=== PATIENT | male | born 1940 | race Caucasian/White ===

== ENCOUNTER 2020-02-16 11:00 | Inpatient (IN) | payer BC, MEDICARE ==
[~2020-02-16] VITALS: Ht 177.8 cm; Wt 87.2 kg
[2020-02-16 11:00] VITALS: BP 137/82
[2020-02-16] MEDS ORDERED: ASPI-630 PO (11:24)
[2020-02-16] MEDS ORDERED: ACETAMINOPHEN 325 MG TABLET. PO PRN ×2 (11:45→12:30)
[2020-02-16] MEDS ORDERED: ONDANSETRON PF 4 MG/2 ML VIAL. IV PRN (11:45)
--- NOTE | 2020-02-16 11:52 | PDOC1 ---
History and Physical Date of Admission Date of Admission DATE: 02/16/20 TIME: 11:47 Identification/Chief Complaint Chief Complaint Left facial paresthesias Source Source: Chart review, Patient History of Present Illness History of Present Illness Mr Martin is an 79 yo relatively healthy male who presents today to [place] [facility] with some left-sided tingling. He denies any weakness. He was in a couple of days ago admitted to [facility] briefly and discharged. He had a CT scan at that time showing old infarcts in frontal lobe and left cerebellum. This morning he states he woke up around 6:00 felt his usual self went to the bathroom and by 6:05 AM today he had some left-sided facial tingling he states initially both legs were tingling but when he got in bed he felt like his left arm and left leg were tingling. He denied any weakness. He denies any headache. He states the symptoms are little more severe today. He has had no difficulty speaking. He does not report any difficulty walking. Ordinarily, he takes baby aspirin every day however he has not taken any today but did take 162mg on 02/15/20. EKG: Normal sinus rhythm rate in the 70s without ischemic ST-T changes Past Medical History Cardiovascular: HTN Past Surgical History Past Surgical History: Appendectomy Family History Family History: High Cholestrol, Hypertension Social History Smoke: Quit (1979) ALCOHOL: social Drugs: None Current Medications Current Medications Current Medications Ondansetron HCl (Zofran) 4 mg PRN Q4HRS PRN IV NAUSEA/VOMITING; Start 02/16/20 at 11:45; Status UNV Acetaminophen (Tylenol) 650 mg PRN Q4HRS PRN PO TEMP OVER 100.4F OR MILD PAIN; Start 02/16/20 at 11:45; Status UNV Enoxaparin Sodium (Lovenox 40mg Syringe) 40 mg Q24H SQ ; Start 02/16/20 at 11:45; Status UNV Active Scripts Active Reported Aspirin 81 Mg Tab.chew 1 Tab PO DAILY Allergies Allergies: Coded Allergies: No Known Drug Allergies (Unverified , 02/16/20) ROS General: No: Chills, Night Sweats, Fatigue, Malaise, Appetite, Other PSYCHOLOGICAL ROS: No: Anxiety, Behavioral Disorder, Concentration difficultie, Decreased libido, Depression, Disorientation, Hallucinations, Hostility, Irritablity, Memory difficulties, Mood Swings, Obsessive thoughts, Physical abuse, Sexual abuse, Sleep disturbances, Suicidal ideation, Other Eyes: No Blurry vision, No Decreased vision, No Double vision, No Dry eyes, No Excessive tearing, No Eye Pain, No Itchy Eyes, No Loss of vision, No Photophobia, No Scotomata, No Uses contacts, No Uses glasses, No Other HEENT: No: Heacaches, Visual Changes, Hearing change, Nasal congestion, Nasal discharge, Oral lesions, Sinus pain, Sore Throat, Epistaxis, Sneezing, Snoring, Tinnitus, Vertigo, Vocal changes, Other ALLERGY AND IMMUNOLOGY: No: Hives, Insect Bite Sensitivity, Itchy/Watery Eyes, Nasal Congestion, Post Nasal Drip, Seasonal Allergies, Other Hematological and Lymphatic: No: Bleeding Problems, Blood Clots, Blood Transfusions, Brusing, Night Sweats, Pallor, Swollen Lymph Nodes, Other ENDOCRINE: No: Breast Changes, Galactorrhea, Hair Pattern Changes, Hot Flashes, Malaise/lethargy, Mood Swings, Palpitations, Polydipsia/polyuria, Skin Changes, Temperature Intolerance, Unexpected Weight Changes, Other Breast: No New/Changing Breast Lumps, No Nipple changes, No Nipple discharge, No Other Respiratory: No: Cough, Hemoptysis, Orthopnea, Pleuritic Pain, Shortness of breath, SOB with excertion, Sputum Changes, Stridor, Tachypnea, Wheezing, Other Gastrointestinal: No Nausea, No Vomiting, No Abdominal Pain, No Diarrhea, No Constipation, No Melena, No Hematochezia, No Other Genitourinary: No Dysuria, No Frequency, No Incontinence, No Hematuria, No Retention, No Discharge, No Urgency, No Pain, No Flank Pain, No Other, No , No , No , No , No , No , No Musculoskeletal: No Gait Disturbance, No Joint Pain, No Joint Stiffness, No Joint Swelling, No Muscle Pain, No Muscular Weakness, No Pain In:, No Swelling In:, No Other Neurological: Yes Numbness/Tingling; No Behavorial Changes, No Bowel/Bladder ControlChng, No Confusion, No Dizziness, No Gait Disturbance, No Headaches, No Impaired Coord/balance, No Memory Loss, No Seizures, No Speech Problems, No Tremors, No Visual Changes, No Weakness, No Other Skin: No Dry Skin, No Eczema, No Hair Changes, No Lumps, No Mole Changes, No Mottling, No Nail Changes, No Pruritus, No Rash, No Skin Lesion Changes, No Other, No Acne Physical Exam General: Alert, Oriented X3, Cooperative, No acute distress HEENT: Atraumatic, PERRLA, EOMI, Mucous membr. moist/pink Lungs: Clear to auscultation, Normal air movement Heart: S1S2, RRR, no thrills, no rubs, no gallops, no murmurs Abdomen: Normal bowel sounds, Soft, No tenderness, No hepatosplenomegaly, No masses Rectal Exam: not examined Extremities: No clubbing, No cyanosis, No edema, Normal pulses, No tenderness/swelling Skin: No rashes, No breakdown, No significant lesion Neuro: Normal gait, Normal speech, Strength at 5/5 X4 ext, Normal tone, Cranial nerves 3-12 NL, Reflexes 2+, Other (Decreased left facial sensation) Psych/Mental Status: Mental status NL, Mood NL Images Images 02/14/2020 CT head without contrast Linear chronic posterior left cerebellar infarct. Encephalomalacia likely from chronic infarcts at the left anterior frontal lobe with ex vacuo enlargement of the frontal horn. Ventriculomegaly is present disproportionate to the cerebral sulci which could be related to generalized brain atrophy versus sequela of normal pressure hydrocephalus. No obstructive hydrocephalus changes evident. No intracranial hemorrhage or mass. Linear scarlike density along the left occipital scalp with mild nodularity is indeterminate measuring 1.5 x 1.0 cm. Orbits, orbits, mastoids and bones are unremarkable. Fluid sphenoid sinuses. IMPRESSION: 1. No acute abnormality. 2. Chronic infarcts as described above. 3. Mild ventriculomegaly which could be related to generalized brain atrophy which is present versus changes of normal pressure hydrocephalus. 4. There is mild fluid within the sphenoid sinuses may indicate sinusitis. 5. Linear nodular 1.5 to 1.0 cm density of the left lower occipital scalp. 02/14/2020 CT angiography of the carotid arteries, CT arteriogram of the brain. Upper aspect of the lungs are free of confluent infiltrates. There are calcified granulomas. Thyroid is homogeneous. There is facet arthritis and degenerative change in the cervical spine. Degenerative disc disease at C5-6 and C6-7. There is mild atherosclerotic change at the aortic arch. Thoracic aorta is mildly dilated, the proximal descending thoracic aorta measures 3.1 cm. There is no stenosis at the origins the great vessels. There is mild plaque at the origin of the left vertebral. Right vertebral is normal. Both vertebral arteries supply flow to the basilar artery. Common carotid arteries are patent. There is mild plaque at the carotid bifurcations on each side without significant stenosis. IMPRESSION: 1. Mild calcified plaque the carotid bifurcations without stenosis. 2. Mild plaque the origin the left vertebral. 3. General changes in the cervical spine. CT arteriogram of the brain CT arteriogram of the brain was done following the CT arteriogram the carotid arteries. Sagittal and coronal MIP images were reconstructed. Three-dimensional images were reconstructed. Both vertebral arteries supply flow to the basilar artery. Basilar artery appeared normal. Posterior cerebral arteries have their main flow from the basilar artery and appear patent. There is mild plaque at the carotid siphon on each side without stenosis. There are normal anterior cerebral arteries on each side with a normal anterior communicating artery. Middle cerebral arteries are patent no major vessel occlusion is noted intracranial veins are patent. No pathologic enhancement. Is focal encephalomalacia in the sylvian fissure frontal lobe on the left possibly an old CVA. There is mucosal thickening in the maxillary antra and seen ON sinuses. IMPRESSION: 1. No intracranial aneurysm or major vessel occlusion noted. 2. Old left frontal CVA. 3. No pathologic enhancement. 02/16/2020: CT HEAD WO CONTRAST Findings: No acute intracranial hemorrhage is identified. There is again old left frontal infarct with cortical involvement, also small old left cerebellar infarct as seen previously. There is similar third and lateral ventriculomegaly although there is degree of supratentorial atrophy. There is no new midline shift. There is atherosclerotic calcification of the carotid siphons bilaterally. Visualized paranasal sinuses and mastoid air cells are overall aerated. There is again nonspecific soft tissue density underlying the skin surface on the left occipital scalp. Impression: 1. There is no evidence of acute intracranial hemorrhage. 2. 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 3. There is similar degree of third and lateral ventriculomegaly which may be due to supratentorial atrophy. VTE Prophylaxis Ordered VTE Prophylaxis Devices: No VTE Pharmacological Prophylaxi: Yes Assessment/Plan Assessment/Plan A/P: Left facial numbness - prior CVA, this was TIA 2 days ago, but recurred. Will have neurology consulted. ASA, statin. MRI. 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 Third and lateral ventriculomegaly - likely from some brain atrophy HTN - cont home medications FEN - General diet PPX - lovenox CODE - FULL Dispo - inpatient for concern for acute CVA NINFA VASQUEZ MD Feb 16, 2020 11:52
[2020-02-16] MEDS ORDERED: IV NORMAL SALINE 1000ML BAG 1,000 ML IV SCH (12:24)
--- NOTE | 2020-02-16 12:28 | PDOC2 ---
NEUROLOGY CONSULT Date of Admission Date of Admission DATE: 02/16/20 TIME: 12:27 History of Present Illness History of Present Illness The patient is an 79-year-old right-handed male who presented to [facility] 2 days ago with left face and arm numbness. He had a similar episode about a year ago, he thinks it was on the left side then. At [facility] he had a CT of the head and CT angiogram. He did see Dr. Swain, but his note is not in the chart. The patient was increased from 81 to 162 mg of aspirin a day. Echocardiogram was not checked. Lipids were not checked. This morning he went back to [facility] with recurrence of left-sided numbness, face and arm. He still has a little bit of tingling in the face. He denies headache, history of migraines, diplopia, dysphagia, dysarthria, weakness, or cognitive change. There is no history of seizure or head injury. He does not have hypertension or diabetes. I reviewed vital signs from [facility], the maximum blood pressure was 162/90 Past Medical History CENTRAL NERVOUS SYSTEM: TIA Musculoskeletal: Osteoarthritis Past Surgical History Past Surgical History: Appendectomy, Other (Lung biopsy, benign) Social History Social History , ex-smoker quit 40 years ago, occasional beer, retired Current Medications Current Medications Current Medications Ondansetron HCl (Zofran) 4 mg PRN Q4HRS PRN IV NAUSEA/VOMITING; Start 02/16/20 at 11:45 Acetaminophen (Tylenol) 650 mg PRN Q4HRS PRN PO TEMP OVER 100.4F OR MILD PAIN; Start 02/16/20 at 11:45 Enoxaparin Sodium (Lovenox 40mg Syringe) 40 mg Q24H SQ ; Start 02/16/20 at 16:00 Active Scripts Active Reported Aspirin 81 Mg Tab.chew 1 Tab PO DAILY Allergies Allergies: Coded Allergies: No Known Drug Allergies (Unverified , 02/16/20) ROS Review of System Negative for fever, chills, weight loss, shortness of breath, chest pain, indigestion, hematochezia, melena, and dysuria. Full 14-point review of systems is negative. Physical Exam Physical Examination General: Well-developed, well-nourished white male in no acute distress HEENT: Normocephalic andatraumatic. Temporal arteriespulsatile and nontender. Neck: Supple without bruit, no meningismus Musculoskeletal: Stability:see neurologic. Gait exam:see neurologic. Tone:see neurologic.Strength:see neurologic. Neurological: Mental Status:intact, orientation, memory, attention span/concentration, language, fund of knowledge normal. Cranial Nerves:Pupils equal and reactive to light, extraocular movements areintact, visual maguire are full to confronta tion. Facial sensation is normal. There is no facial asymmetry. Vestibulo-ocular reflex is intact. Palate elevates and tongue protrudes in midline. All other cranial related problems are negative except as mentioned before.Reflexes:2+ and symmetric with flexor plantar responses. Motor:5/5 strength with normal tone and bulk. Coordination:Finger-nose finger and [id number] testing are normal. Rapid alternating movements and fine finger movements are intact. Gait:Normal, including tandem. Sensory:Normal pinprick, vibration, light touch, proprioception. Vitals VITALS Vital Signs Date Time Temp Pulse Resp B/P (MAP) Pulse Ox O2 Delivery O2 Flow Rate FiO2 02/16/20 11:00 Room Air Images Images 02/14/2020 CT head without contrast Linear chronic posterior left cerebellar infarct. Encephalomalacia likely from chronic infarcts at the left anterior frontal lobe with ex vacuo enlargement of the frontal horn. Ventriculomegaly is present disproportionate to the cerebral sulci which could be related to generalized brain atrophy versus sequela of normal pressure hydrocephalus. No obstructive hydrocephalus changes evident. No intracranial hemorrhage or mass. Linear scarlike density along the left occipital scalp with mild nodularity is indeterminate measuring 1.5 x 1.0 cm. Orbits, orbits, mastoids and bones are unremarkable. Fluid sphenoid sinuses. IMPRESSION: 1. No acute abnormality. 2. Chronic infarcts as described above. 3. Mild ventriculomegaly which could be related to generalized brain atrophy which is present versus changes of normal pressure hydrocephalus. 4. There is mild fluid within the sphenoid sinuses may indicate sinusitis. 5. Linear nodular 1.5 to 1.0 cm density of the left lower occipital scalp. 02/14/2020 CT angiography of the carotid arteries, CT arteriogram of the brain. Upper aspect of the lungs are free of confluent infiltrates. There are calcified granulomas. Thyroid is homogeneous. There is facet arthritis and degenerative change in the cervical spine. Degenerative disc disease at C5-6 and C6-7. There is mild atherosclerotic change at the aortic arch. Thoracic aorta is mildly dilated, the proximal descending thoracic aorta measures 3.1 cm. There is no stenosis at the origins the great vessels. There is mild plaque at the origin of the left vertebral. Right vertebral is normal. Both vertebral arteries supply flow to the basilar artery. Common carotid arteries are patent. There is mild plaque at the carotid bifurcations on each side without significant stenosis. IMPRESSION: 1. Mild calcified plaque the carotid bifurcations without stenosis. 2. Mild plaque the origin the left vertebral. 3. General changes in the cervical spine. CT arteriogram of the brain CT arteriogram of the brain was done following the CT arteriogram the carotid arteries. Sagittal and coronal MIP images were reconstructed. Three-dimensional images were reconstructed. Both vertebral arteries supply flow to the basilar artery. Basilar artery appeared normal. Posterior cerebral arteries have their main flow from the basilar artery and appear patent. There is mild plaque at the carotid siphon on each side without stenosis. There are normal anterior cerebral arteries on each side with a normal anterior communicating artery. Middle cerebral arteries are patent no major vessel occlusion is noted intracranial veins are patent. No pathologic enhancement. Is focal encephalomalacia in the sylvian fissure frontal lobe on the left possibly an old CVA. There is mucosal thickening in the maxillary antra and seen ON sinuses. IMPRESSION: 1. No intracranial aneurysm or major vessel occlusion noted. 2. Old left frontal CVA. 3. No pathologic enhancement. 02/16/2020: CT HEAD WO CONTRAST Findings: No acute intracranial hemorrhage is identified. There is again old left frontal infarct with cortical involvement, also small old left cerebellar infarct as seen previously. There is similar third and lateral ventriculomegaly although there is degree of supratentorial atrophy. There is no new midline shift. There is atherosclerotic calcification of the carotid siphons bilaterally. Visualized paranasal sinuses and mastoid air cells are overall aerated. There is again nonspecific soft tissue density underlying the skin surface on the left occipital scalp. Impression: 1. There is no evidence of acute intracranial hemorrhage. 2. 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 3. There is similar degree of third and lateral ventriculomegaly which may be due to supratentorial atrophy. Assessment/Plan Assessment/Plan Impression: Symptoms of a right hemispheric small-vessel infarct, fluctuating symptoms, he does not have a history of migraines to explain this, there is no major metabolic derangements such as hypo/hyperglycemia or severe hypertension (maximum blood pressure was 162/90 at [facility]), which could explain recurrent symptoms from an old stroke. Chronic left frontal infarct with cortical involvement, also small old left cerebellar infarct. Recommendations: MRI of the brain Echocardiogram Carotid Doppler studies were done, will check on results, but note that he had CT angiogram already Rehabilitation modalities, screening Increase to full adult dose aspirin Atorvastatin, I discussed side effects, pending lipid panel tomorrow morning Monitor blood pressure, okay to start medication if more than 140/90, I do not think we need to use the usual parameters of 210/120 for treatment during acute stroke Aim for discharge tomorrow if testing negative. Follow-up with neurology as needed. Thank you for letting me help with the patient's care. ORLIN DYE MD Feb 16, 2020 12:28
[2020-02-16] MEDS ORDERED: ASPIRIN RECTAL 300 MG SUPP. PR PRN (12:30)
[2020-02-16] MEDS ORDERED: ACETAMINOPHEN 650 MG SUPP.RECT. PR PRN (12:30)
--- NOTE | 2020-02-16 12:59 | RAD ---
Examination: DOPPLER CAROTID BILAT History: Paresthesias involving left side of the face. Previous TIA. Comparison study: None available. Findings: The common, internal and external carotid arteries were examined by grayscale, color and spectral Doppler ultrasound. [id number] quantity of partially calcified plaque is present involving the left internal carotid artery and to a lesser extent at the left common carotid artery. Small quantity of partially calcific plaque is noted involving the right internal carotid artery. Mild intimal thickening is noted involving the visualized arterial vasculature. Flow in both vertebral arteries was antegrade and normal. The following are the velocities and ratios in the carotid arteries on both sides: RIGHT ICA PV: 70.3 cm/sec RIGHT CCA PV: 100.6 cm/sec RIGHT ICA ED: 13 cm/sec RIGHT IC/CCPV: 0.7 RIGHT VERTEBRAL: antegrade flow LEFT ICA PV: 72 cm/sec LEFT CCA PV: 105 cm/sec LEFT ICA ED: 16 cm/sec LEFT IC/CCPV: 0.6. LEFT VERTEBRAL: antegrade flow <50% ICA Stenosis: PSV < 125cm/s (EDV < 40cm/s; SVR < 2.0) 50-69% ICA Stenosis: PSV < 125-229cm/s (EDV 40-99cm/s; SVR 2.0-3.9) >70% ICA Stenosis: PSV > 230cm/s (EDV >100cm/s; SVR >4.0) Impression: No hemodynamic stenosis. [id number] quantity of calcific plaque is seen. PQRS Compliance Statement - Stenosis calculations for CT, MR and conventional angiography are based upon measurement of the distal ICA diameter in accordance with the NASCET methodology. Stenosis calculations for carotid ultrasound studies are derived from validated velocity criteria which are known to correlate with the NASCET methodology. Electronically signed by: Jeffery Downing MD (02/16/2020 12:55 PM) [id number]
--- NOTE | 2020-02-16 14:41 | RAD ---
BRAIN W/O CONTRAST Date: 02/16/2020 11:42 AM Indication: Recurrent TIA Comparison: CT 02/16/2020. Technique: Multiplanar multisequence MRI of the brain was performed without intravenous contrast using the standard protocol. Findings: No acute infarct. No acute or chronic hemorrhage. The ventricles are normal in size and configuration without hydrocephalus. Mild to moderate scattered FLAIR hyperintensities in the subcortical and periventricular deep white matter, a nonspecific finding, most commonly seen with chronic small vessel ischemic disease. Mild to moderate generalized cerebral volume loss. Small areas of left frontal and left cerebellar encephalomalacia. The scalp and calvarium are normal. The pituitary and sella are normal. No Chiari malformation. Mild incompletely characterized degenerative spondylosis of the visualized upper cervical spine. The visualized orbits and globes are normal. The visualized paranasal sinuses are clear. The mastoid air cells are clear. Normal flow voids within the vertebral, basilar, and internal carotid arteries indicating patency. IMPRESSION: 1. No acute infarct, hemorrhage, mass, or hydrocephalus. 2. Small areas of left frontal and left cerebellar encephalomalacia. 3. Mild to moderate chronic small vessel ischemic disease and generalized cerebral volume loss. Electronically signed by: Yosef Meraz MD (02/16/2020 2:39 PM) [id number]
[2020-02-16 15:00] VITALS: BP 155/84
--- NOTE | 2020-02-16 15:31 | CARD ---
MR#: [id number] Date of Study: 02/16/2020 Ordering Physician: ORLIN DYE, Referring Physician: ORLIN DYE, Tech: Madie Sun APPROVED REPORT EXAM: Two-dimensional and M-mode echocardiogram with Doppler and color Doppler. Other Information Quality : GoodHR: 72bpm INDICATION CVA/TIA 2D DIMENSIONS RVDd4.0 (2.9-3.5cm)Left Atrium(2D)3.2 (1.6-4.0cm) IVSd0.9 (0.7-1.1cm)Aortic Root(2D)3.5 (2.0-3.7cm) LVDd5.4 (3.9-5.9cm)LVOT Diameter2.1 (1.8-2.4cm) PWd0.9 (0.7-1.1cm)LVDs3.3 (2.5-4.0cm) FS (%) 37.6 %SV93.3 ml LVEF(%)67.1 (>50%) Aortic Valve AoV Peak Mars.125.2cm/sAoV VTI21.1cm AO Peak GR.6.3mmHgLVOT Peak Mars.107.1cm/s LVOT VTI 21.71cmAO Mean GR.3mmHg DEVONTE (VMAX)2.99fy6LCV (VTI)3.56cm2 Mitral Valve MV E Jtpmwndo28.4cm/sMV DECEL [id number] MV A Rompiwjc00.4cm/sMV E Mean Gr.1mmHg MV MYI06svB/A Ratio0.7 MVA (PHT)2.35cm2 TDI E/Lateral E'10.4E/Medial E'8.3 Pulmonary Valve PV Peak Apyokcmu49.9cm/sPV Peak Grad.3mmHg Tricuspid Valve TR P. Azraclzd770dg/sRAP EGQHXPNK4jqAm TR Peak Gr.15vhMzDDUW68qaLk Pulmonary Vein S1 Wadipzln25.8cm/sD2 Wgcxliof04.9cm/s PVa [id number] LEFT VENTRICLE The left ventricle is normal size. There is normal left ventricular wall thickness. The left ventricu lar systolic function is normal and the ejection fraction is within normal range. The Ejection Fracti on is 55-60%. There is normal LV segmental wall motion. Transmitral Doppler flow pattern is Grade I-a bnormal relaxation pattern. RIGHT VENTRICLE The right ventricle is mildly dilated. There is normal right ventricular wall thickness. The right ve ntricular systolic function is normal. ATRIA The left atrium size is normal. The right atrium size is normal. The interatrial septum is intact wit h no evidence for an atrial septal defect or patent foramen ovale as noted on 2-D or Doppler imaging. AORTIC VALVE The aortic valve is normal in structure and function. Doppler and Color Flow revealed trace aortic re gurgitation. There is no significant aortic valvular stenosis. MITRAL VALVE The mitral valve is normal in structure and function. There is no evidence of mitral valve prolapse. There is no mitral valve stenosis. Doppler and Color-flow revealed trace mitral regurgitation. TRICUSPID VALVE The tricuspid valve is normal in structure and function. Doppler and Color Flow revealed trace tricus pid regurgitation with an estimated PAP of 26 mmHg. There is no tricuspid valve stenosis. PULMONIC VALVE The pulmonic valve is not well visualized. Doppler and Color Flow revealed trace to mild pulmonic kayla vular regurgitation. There is no pulmonic valvular stenosis. GREAT VESSELS The aortic root is normal in size. The ascending aorta is normal in size. The IVC is normal in size a nd collapses >50% with inspiration. PERICARDIAL EFFUSION There is no evidence of significant pericardial effusion. Critical Notification Critical Value: No <Conclusion> The left ventricular systolic function is normal and the ejection fraction is within normal range. Th e Ejection Fraction is 55-60%. There is normal LV segmental wall motion. Signed by : Jack Magaña, Electronically Approved : 02/16/2020 15:31:16
[2020-02-16] MEDS: ENOXAPARIN 40 MG/0.4 ML SYRINGE. SQ SCH (17:29)
[2020-02-16 19:34] VITALS: BP 114/54
[2020-02-16] MEDS ORDERED: ATORVASTATIN CALCIUM 40 MG TABLET. PO SCH (21:00)
[2020-02-16] MEDS ORDERED: SIMVASTATIN 10 MG TABLET PO SCH (21:00)
[2020-02-16 23:03] VITALS: BP 118/58
[2020-02-17 03:19] VITALS: BP 115/55
[2020-02-17 05:29] LABS: CHOLESTEROL/HDL RATIO 3.2
[2020-02-17 07:00] VITALS: BP 146/83
[2020-02-17] MEDS ORDERED: ASPIRIN ENTERIC COATED 325 MG TABLET.DR. PO SCH (08:00)
[2020-02-17 11:47] VITALS: BP 135/74
--- NOTE | 2020-02-17 12:39 | PDOC ---
PROGRESS NOTES History of Present Illness History of Present Illness Impression: 1. There is no evidence of acute intracranial hemorrhage. 2. 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 3. There is similar degree of third and lateral ventriculomegaly which may be due to supratentorial atrophy. VTE Prophylaxis Ordered VTE Prophylaxis Devices: No VTE Pharmacological Prophylaxi: Yes DISCHARGE DX Assessment/Plan A/P: Left facial numbness - prior CVA, this was TIA 2 days ago, but recurred. Will have neurology consulted. ASA, statin. MRI. 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 HTN - cont home medications FEN - General diet PPX - lovenox CODE - FULL Dispo - inpatient for concern for acute CVA D/C PLANNING 34 MIN Discharge Recommendations * Home independent Vitals Vitals Vital Signs Date Time Temp Pulse Resp B/P (MAP) Pulse Ox O2 Delivery O2 Flow Rate FiO2 02/17/20 11:47 97.6 70 18 135/74 (94) 98 Room Air 97.6 Physical Exam General: Alert, Oriented X3, Cooperative, No acute distress Heart: Regular rate Abdomen: Normal bowel sounds, Soft, No tenderness, No hepatosplenomegaly, No masses Extremities: No clubbing, No cyanosis, No edema, Normal pulses, No tenderness/swelling Skin: No rashes, No breakdown, No significant lesion Labs LABS Examination: DOPPLER CAROTID BILAT History: Paresthesias involving left side of the face. Previous TIA. Comparison study: None available. Findings: The common, internal and external carotid arteries were examined by grayscale, color and spectral Doppler ultrasound. Qtqgz-cn-quvaxusz quantity of partially calcified plaque is present involving the left internal carotid artery and to a lesser extent at the left common carotid artery. Small quantity of partially calcific plaque is noted involving the right internal carotid artery. Mild intimal thickening is noted involving the visualized arterial vasculature. Flow in both vertebral arteries was antegrade and normal. The following are the velocities and ratios in the carotid arteries on both sides: RIGHT ICA PV: 70.3 cm/sec RIGHT CCA PV: 100.6 cm/sec RIGHT ICA ED: 13 cm/sec RIGHT IC/CCPV: 0.7 RIGHT VERTEBRAL: antegrade flow LEFT ICA PV: 72 cm/sec LEFT CCA PV: 105 cm/sec LEFT ICA ED: 16 cm/sec LEFT IC/CCPV: 0.6. LEFT VERTEBRAL: antegrade flow <50% ICA Stenosis: PSV < 125cm/s (EDV < 40cm/s; SVR < 2.0) 50-69% ICA Stenosis: PSV < 125-229cm/s (EDV 40-99cm/s; SVR 2.0-3.9) >70% ICA Stenosis: PSV > 230cm/s (EDV >100cm/s; SVR >4.0) Impression: No hemodynamic stenosis. Mobqz-xt-ossndzgb quantity of calcific plaque is seen. PQRS Compliance Statement - Stenosis calculations for CT, MR and conventional angiography are based upon measurement of the distal ICA diameter in accordance with the NASCET methodology. Stenosis calculations for carotid ultrasound studies are derived from validated velocity criteria which are known to correlate with the NASCET methodology. Electronically signed by: Jeffery Peace MD (02/16/2020 12:55 PM) [id number] DICTATED and SIGNED BY: JEFFERY PEACE MD BRAIN W/O CONTRAST Date: 02/16/2020 11:42 AM Indication: Recurrent TIA Comparison: CT 02/16/2020. Technique: Multiplanar multisequence MRI of the brain was performed without intravenous contrast using the standard protocol. Findings: No acute infarct. No acute or chronic hemorrhage. The ventricles are normal in size and configuration without hydrocephalus. Mild to moderate scattered FLAIR hyperintensities in the subcortical and periventricular deep white matter, a nonspecific finding, most commonly seen with chronic small vessel ischemic disease. Mild to moderate generalized cerebral volume loss. Small areas of left frontal and left cerebellar encephalomalacia. The scalp and calvarium are normal. The pituitary and sella are normal. No Chiari malformation. Mild incompletely characterized degenerative spondylosis of the visualized upper cervical spine. The visualized orbits and globes are normal. The visualized paranasal sinuses are clear. The mastoid air cells are clear. Normal flow voids within the vertebral, basilar, and internal carotid arteries indicating patency. IMPRESSION: 1. No acute infarct, hemorrhage, mass, or hydrocephalus. 2. Small areas of left frontal and left cerebellar encephalomalacia. 3. Mild to moderate chronic small vessel ischemic disease and generalized cerebral volume loss. Electronically signed by: Alexia Berumen MD (02/16/2020 2:39 PM) [id number] DICTATED and SIGNED BY: ALEXIA BERUMEN MD DATE: 02/16/20 1439 Laboratory Tests Test 02/17/20 04:30 Triglycerides Level 88 mg/dL (0-150) Cholesterol Level 214 mg/dL (0-200) LDL Cholesterol, Calculated 130 mg/dL (0-100) VLDL Cholesterol, Calculated 18 mg/dL (0-40) Non-HDL Cholesterol Calculated 148 mg/dL (0-129) HDL Cholesterol 66 mg/dL (40-60) Cholesterol/HDL Ratio 3.2 Assessment and Plan Assessmemt and Plan * Independent Ambulation Assistive Device * No Device Ambulation Distance * 125 feet + 125 feet Ambulation Comments * Good, step-through gait. No loss of balance with turning and backing. Pt reports feeling at functional baseline. Stairs Assistance Required * Independent Number of Stairs * 2-4 Stairs Assistive Device * Rail on Left Stairs Comments * Pt steady with stair climbing. Reciprocal gait pattern up and down steps and one handrail. Balance Exercises * Sitting * Weight Shifting * Standing * Reaching to Floor * Backing Balance Exercises Comments * No loss of balance observed with above exercises. Other Information * Pt is at functional baseline. PT will recommend home with family assist. No further pullman conductor intervention indicated. PT will sign-off. Clinical Presentation * Stable Evaluation Complexity Level * Low Complexity Pt/caregiver agrees with plan of care/goals * Yes Patient condition at conclusion of therapy * Pt in chair * Call light in reach * Phone in reach * PtIn no apparent distress * Pt denies further needs Communicated Patient Care With (Name, Title) * Tahir RN; Judy OT No Further Skilled P.T. Intervention Required * Eval only-No PT Needs Discharge Recommendations * Home independent Discharge Recommendation - DME Comment Review of Relevant I have reviewed the following items marleni (where applicable) has been applied. Labs Laboratory Tests Test 02/17/20 04:30 Triglycerides Level 88 mg/dL (0-150) Cholesterol Level 214 mg/dL (0-200) LDL Cholesterol, Calculated 130 mg/dL (0-100) VLDL Cholesterol, Calculated 18 mg/dL (0-40) Non-HDL Cholesterol Calculated 148 mg/dL (0-129) HDL Cholesterol 66 mg/dL (40-60) Cholesterol/HDL Ratio 3.2 Laboratory Tests Test 02/17/20 04:30 Triglycerides Level 88 mg/dL (0-150) Cholesterol Level 214 mg/dL (0-200) LDL Cholesterol, Calculated 130 mg/dL (0-100) VLDL Cholesterol, Calculated 18 mg/dL (0-40) Non-HDL Cholesterol Calculated 148 mg/dL (0-129) HDL Cholesterol 66 mg/dL (40-60) Cholesterol/HDL Ratio 3.2 Medications Current Medications Ondansetron HCl (Zofran) 4 mg PRN Q4HRS PRN IV NAUSEA/VOMITING; Start 02/16/20 at 11:45 Acetaminophen (Tylenol) 650 mg PRN Q4HRS PRN PO TEMP OVER 100.4F OR MILD PAIN; Start 02/16/20 at 11:45 Enoxaparin Sodium (Lovenox 40mg Syringe) 40 mg Q24H SQ Last administered on 02/16/20at 17:29; Start 02/16/20 at 16:00 Sodium Chloride 1,000 ml @ 100 mls/hr Q10H IV Last administered on 02/16/20at 13:20; Start 02/16/20 at 12:24; Stop 02/16/20 at 13:50; Status DC Simvastatin (Zocor) 10 mg QHS PO ; Start 02/16/20 at 21:00; Stop 02/16/20 at 14:25; Status DC Acetaminophen (Tylenol) 650 mg PRN Q6HRS PRN PO TEMP > 100.4F; Start 02/16/20 at 12:30; Stop 02/16/20 at 14:25; Status DC Acetaminophen (Tylenol Supp) 650 mg PRN Q4HRS PRN [place] TEMP > 100.4F; Start 02/16/20 at 12:30 Aspirin (Ecotrin) 325 mg DAILYWBKFT PO Last administered on 02/17/20at 09:19; Start 02/17/20 at 08:00 Aspirin (Aspirin Rectal Supp) 300 mg PRN DAILY PRN [place] IF UNABLE TO TAKE PO; Start 02/16/20 at 12:30 Atorvastatin Calcium (Lipitor) 40 mg QHS PO Last administered on 02/16/20at 20:30; Start 02/16/20 at 21:00 Active Scripts Active Reported Aspirin 81 Mg Tab.chew 1 Tab PO DAILY Vitals/I & O Vital Sign - Last 24 Hours 02/16/20 02/16/20 02/16/20 02/16/20 15:00 19:34 20:00 23:03 Temp 98.2 98.2 Pulse 74 75 76 Resp 18 18 18 B/P (MAP) 155/84 (107) 114/54 (74) 118/58 (78) Pulse Ox 97 96 94 O2 Delivery Room Air Room Air Room Air Room Air 02/17/20 02/17/20 02/17/20 02/17/20 03:19 07:00 08:00 11:47 Temp 98.2 97.8 97.6 98.2 97.8 97.6 Pulse 76 92 70 Resp 18 18 18 B/P (MAP) 115/55 (75) 146/83 (104) 135/74 (94) Pulse Ox 95 94 98 O2 Delivery Room Air Room Air Room Air Room Air Intake and Output 02/16/20 02/16/20 02/17/20 15:00 23:00 07:00 Intake Total 800 ml 10 ml Balance 800 ml 10 ml RANJIT OSEI MD Feb 17, 2020 12:39
--- NOTE | 2020-02-17 13:45 | PDOC ---
PROGRESS NOTES Assessment Patient is a 79-year-old man who complained of left facial numbness. He underwent investigation with carotid Doppler, echocardiogram and MRI which were all negative. He does have evidence for hyperlipidemia and has been started on a statin. He will continue to be maintained on aspirin daily. He may be dismissed from a neurologic perspective. Plan He may be dismissed from a neurologic perspective. He will continue with the statin and aspirin as mentioned above. He should contact neurology or his primary care physician should he have further neurologic symptoms or go to the nearest emergency room. Subjective I feel fine. I haven't had any more symptoms. Objective Vital Signs Date Time Temp Pulse Resp B/P (MAP) Pulse Ox O2 Delivery O2 Flow Rate FiO2 02/17/20 11:47 97.6 70 18 135/74 (94) 98 Room Air 97.6 Intake and Output 02/17/20 07:00 Intake Total 810 ml Balance 810 ml Intake Oral 810 ml # Voids 1 PHYSICAL EXAM He was alert, awake and cooperative. Speech was fluent and clear. The eyes were conjugate and face symmetric. Movements were symmetric and well coordinated. Sitting balance was normal. Review of Relevant I have reviewed the following items marleni (where applicable) has been applied. Labs Laboratory Tests Test 02/17/20 04:30 Triglycerides Level 88 mg/dL (0-150) Cholesterol Level 214 mg/dL (0-200) LDL Cholesterol, Calculated 130 mg/dL (0-100) VLDL Cholesterol, Calculated 18 mg/dL (0-40) Non-HDL Cholesterol Calculated 148 mg/dL (0-129) HDL Cholesterol 66 mg/dL (40-60) Cholesterol/HDL Ratio 3.2 Laboratory Tests Test 02/17/20 04:30 Triglycerides Level 88 mg/dL (0-150) Cholesterol Level 214 mg/dL (0-200) LDL Cholesterol, Calculated 130 mg/dL (0-100) VLDL Cholesterol, Calculated 18 mg/dL (0-40) Non-HDL Cholesterol Calculated 148 mg/dL (0-129) HDL Cholesterol 66 mg/dL (40-60) Cholesterol/HDL Ratio 3.2 Medications Current Medications Ondansetron HCl (Zofran) 4 mg PRN Q4HRS PRN IV NAUSEA/VOMITING; Start 02/16/20 at 11:45 Acetaminophen (Tylenol) 650 mg PRN Q4HRS PRN PO TEMP OVER 100.4F OR MILD PAIN; Start 02/16/20 at 11:45 Enoxaparin Sodium (Lovenox 40mg Syringe) 40 mg Q24H SQ Last administered on 02/16/20at 17:29; Start 02/16/20 at 16:00 Sodium Chloride 1,000 ml @ 100 mls/hr Q10H IV Last administered on 02/16/20at 13:20; Start 02/16/20 at 12:24; Stop 02/16/20 at 13:50; Status DC Simvastatin (Zocor) 10 mg QHS PO ; Start 02/16/20 at 21:00; Stop 02/16/20 at 14:25; Status DC Acetaminophen (Tylenol) 650 mg PRN Q6HRS PRN PO TEMP > 100.4F; Start 02/16/20 at 12:30; Stop 02/16/20 at 14:25; Status DC Acetaminophen (Tylenol Supp) 650 mg PRN Q4HRS PRN [place] TEMP > 100.4F; Start 02/16/20 at 12:30 Aspirin (Ecotrin) 325 mg DAILYWBKFT PO Last administered on 02/17/20at 09:19; Start 02/17/20 at 08:00 Aspirin (Aspirin Rectal Supp) 300 mg PRN DAILY PRN [place] IF UNABLE TO TAKE PO; Start 02/16/20 at 12:30 Atorvastatin Calcium (Lipitor) 40 mg QHS PO Last administered on 02/16/20at 20:30; Start 02/16/20 at 21:00 Active Scripts Active Reported Aspirin 81 Mg Tab.chew 1 Tab PO DAILY Vitals/I & O Vital Sign - Last 24 Hours 02/16/20 02/16/20 02/16/20 02/16/20 15:00 19:34 20:00 23:03 Temp 98.2 98.2 Pulse 74 75 76 Resp 18 18 18 B/P (MAP) 155/84 (107) 114/54 (74) 118/58 (78) Pulse Ox 97 96 94 O2 Delivery Room Air Room Air Room Air Room Air 02/17/20 02/17/20 02/17/20 02/17/20 03:19 07:00 08:00 11:47 Temp 98.2 97.8 97.6 98.2 97.8 97.6 Pulse 76 92 70 Resp 18 18 18 B/P (MAP) 115/55 (75) 146/83 (104) 135/74 (94) Pulse Ox 95 94 98 O2 Delivery Room Air Room Air Room Air Room Air Intake and Output 02/16/20 02/16/20 02/17/20 15:00 23:00 07:00 Intake Total 800 ml 10 ml Balance 800 ml 10 ml JOLENE ANAND MD Feb 17, 2020 13:45
--- NOTE | 2020-02-17 14:23 | PDOC3 ---
Discharge Summary Date of Admission: Feb 16, 2020 Date of Discharge: Feb 17, 2020 Follow-Up: 3-5 days Admitting Diagnosis comment: DISCHARGE DX Assessment/Plan A/P: Left facial numbness - prior CVA, this was TIA 2 days ago, but recurred. Will have neurology consulted. ASA, statin. MRI. 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 HTN - cont home medications FEN - General diet PPX - lovenox CODE - FULL Dispo - inpatient for concern for acute CVA D/C PLANNING 34 MIN Discharge Recommendations * Home independent Vitals Vitals Vital Signs Date Time Temp Pulse Resp B/P (MAP) Pulse Ox O2 Delivery O2 Flow Rate FiO2 02/17/20 11:47 97.6 70 18 135/74 (94) 98 Room Air 97.6 Physical Exam General: Alert, Oriented X3, Cooperative, No acute distress Heart: Regular rate Abdomen: Normal bowel sounds, Soft, No tenderness, No hepatosplenomegaly, No masses Extremities: No clubbing, No cyanosis, No edema, Normal pulses, No tenderness/swelling Skin: No rashes, No breakdown, No significant lesion Labs LABS Examination: DOPPLER CAROTID BILAT History: Paresthesias involving left side of the face. Previous TIA. Comparison study: None available. Findings: The common, internal and external carotid arteries were examined by grayscale, color and spectral Doppler ultrasound. Keywp-vu-iurmyrcv quantity of partially calcified plaque is present involving the left internal carotid artery and to a lesser extent at the left common carotid artery. Small quantity of partially calcific plaque is noted involving the right internal carotid artery. Mild intimal thickening is noted involving the visualized arterial vasculature. Flow in both vertebral arteries was antegrade and normal. The following are the velocities and ratios in the carotid arteries on both sides: RIGHT ICA PV: 70.3 cm/sec RIGHT CCA PV: 100.6 cm/sec RIGHT ICA ED: 13 cm/sec RIGHT IC/CCPV: 0.7 RIGHT VERTEBRAL: antegrade flow LEFT ICA PV: 72 cm/sec LEFT CCA PV: 105 cm/sec LEFT ICA ED: 16 cm/sec LEFT IC/CCPV: 0.6. LEFT VERTEBRAL: antegrade flow <50% ICA Stenosis: PSV < 125cm/s (EDV < 40cm/s; SVR < 2.0) 50-69% ICA Stenosis: PSV < 125-229cm/s (EDV 40-99cm/s; SVR 2.0-3.9) >70% ICA Stenosis: PSV > 230cm/s (EDV >100cm/s; SVR >4.0) Impression: No hemodynamic stenosis. Ufxfb-vx-ehslgopj quantity of calcific plaque is seen. PQRS Compliance Statement - Stenosis calculations for CT, MR and conventional angiography are based upon measurement of the distal ICA diameter in accordance with the NASCET methodology. Stenosis calculations for carotid ultrasound studies are derived from validated velocity criteria which are known to correlate with the NASCET methodology. Electronically signed by: Jeffery Peace MD (02/16/2020 12:55 PM) [id number] DICTATED and SIGNED BY: JEFFERY PEACE MD BRAIN W/O CONTRAST Date: 02/16/2020 11:42 AM Indication: Recurrent TIA Comparison: CT 02/16/2020. Technique: Multiplanar multisequence MRI of the brain was performed without intravenous contrast using the standard protocol. Findings: No acute infarct. No acute or chronic hemorrhage. The ventricles are normal in size and configuration without hydrocephalus. Mild to moderate scattered FLAIR hyperintensities in the subcortical and periventricular deep white matter, a nonspecific finding, most commonly seen with chronic small vessel ischemic disease. Mild to moderate generalized cerebral volume loss. Small areas of left frontal and left cerebellar encephalomalacia. The scalp and calvarium are normal. The pituitary and sella are normal. No Chiari malformation. Mild incompletely characterized degenerative spondylosis of the visualized upper cervical spine. The visualized orbits and globes are normal. The visualized paranasal sinuses are clear. The mastoid air cells are clear. Normal flow voids within the vertebral, basilar, and internal carotid arteries indicating patency. IMPRESSION: 1. No acute infarct, hemorrhage, mass, or hydrocephalus. 2. Small areas of left frontal and left cerebellar encephalomalacia. 3. Mild to moderate chronic small vessel ischemic disease and generalized cerebral volume loss. Electronically signed by: Alexia Meraz MD (02/16/2020 2:39 PM) [id number] DICTATED and SIGNED BY: ALEXIA MERAZ MD Brief Hospital Course Mr. Martin is a 79 old [sex] who presented with [CVA SYMPTOMS ] CONDITION AT DISCHARGE: Improved Discharge Medications Current Medications Ondansetron HCl (Zofran) 4 mg PRN Q4HRS PRN IV NAUSEA/VOMITING; Start 02/16/20 at 11:45 Acetaminophen (Tylenol) 650 mg PRN Q4HRS PRN PO TEMP OVER 100.4F OR MILD PAIN; Start 02/16/20 at 11:45 Enoxaparin Sodium (Lovenox 40mg Syringe) 40 mg Q24H SQ Last administered on 02/16/20at 17:29; Start 02/16/20 at 16:00 Sodium Chloride 1,000 ml @ 100 mls/hr Q10H IV Last administered on 02/16/20at 13:20; Start 02/16/20 at 12:24; Stop 02/16/20 at 13:50; Status DC Simvastatin (Zocor) 10 mg QHS PO ; Start 02/16/20 at 21:00; Stop 02/16/20 at 14:25; Status DC Acetaminophen (Tylenol) 650 mg PRN Q6HRS PRN PO TEMP > 100.4F; Start 02/16/20 at 12:30; Stop 02/16/20 at 14:25; Status DC Acetaminophen (Tylenol Supp) 650 mg PRN Q4HRS PRN [place] TEMP > 100.4F; Start 02/16/20 at 12:30 Aspirin (Ecotrin) 325 mg DAILYWBKFT PO Last administered on 02/17/20at 09:19; Start 02/17/20 at 08:00 Aspirin (Aspirin Rectal Supp) 300 mg PRN DAILY PRN [place] IF UNABLE TO TAKE PO; Start 02/16/20 at 12:30 Atorvastatin Calcium (Lipitor) 40 mg QHS PO Last administered on 02/16/20at 20:30; Start 02/16/20 at 21:00 Active Scripts Active Reported Aspirin 81 Mg Tab.chew 1 Tab PO DAILY Vital Signs Vital Signs Date Time Temp Pulse Resp B/P (MAP) Pulse Ox O2 Delivery O2 Flow Rate FiO2 02/17/20 11:47 97.6 70 18 135/74 (94) 98 Room Air 97.6 Labs Laboratory Tests Test 02/17/20 04:30 Triglycerides Level 88 mg/dL (0-150) Cholesterol Level 214 mg/dL (0-200) LDL Cholesterol, Calculated 130 mg/dL (0-100) VLDL Cholesterol, Calculated 18 mg/dL (0-40) Non-HDL Cholesterol Calculated 148 mg/dL (0-129) HDL Cholesterol 66 mg/dL (40-60) Cholesterol/HDL Ratio 3.2 Laboratory Tests Test 02/17/20 04:30 Triglycerides Level 88 mg/dL (0-150) Cholesterol Level 214 mg/dL (0-200) LDL Cholesterol, Calculated 130 mg/dL (0-100) VLDL Cholesterol, Calculated 18 mg/dL (0-40) Non-HDL Cholesterol Calculated 148 mg/dL (0-129) HDL Cholesterol 66 mg/dL (40-60) Cholesterol/HDL Ratio 3.2 Allergies Allergies Coded Allergies Type Severity Reaction Last Updated Verified No Known Drug Allergies 02/16/20 No Disposition/Orders: D/C to Home RANJIT OSEI MD Feb 17, 2020 14:23
[2020-02-17] MEDS ORDERED: ATOR40TA59 PO (14:25)
[2020-02-17] MEDS ORDERED: ASPI325T11 PO (14:25)
--- NOTE | 2020-02-17 14:26 | DISCH ---
DISCHARGE INSTRUCTIONS Condition on Discharge Condition on Discharge: Stable Activity After Discharge Activity Instructions for Disc: Activity as tolerated Lifting Instructions after Dis: No heavy lifting, No pulling or pushing Driving Instructions after Dis: Do not drive Diet after Discharge Diet after Discharge: Cardiac Liquid Texture: Thin Liquid Contacting the DRFranc after DC Call your doctor for: If your condition worsens Warfarin Follow-Up Warfarin Follow UP: SEE PCP NEXT WEEK RANJIT OSEI MD Feb 17, 2020 14:26
[2020-02-17 15:59] VITALS: BP 128/81
[2020-02-17] MEDS: ENOXAPARIN 40 MG/0.4 ML SYRINGE. SQ SCH (16:00)
== END 2020-02-17 15:55 | disposition home or self-care (01) | DRG 57 ==
LOC: 2 NORTH 11:00
PROVIDERS: ADMIT Internal Medicine; ATTEND Internal Medicine
DX: G31.9 Degenerative disease of nervous system, unspecified (principal); G45.9 Transient cerebral ischemic attack, unspecified; G93.89 Other specified disorders of brain; E78.5 Hyperlipidemia, unspecified; I10 Essential (primary) hypertension; M46.90 Unspecified inflammatory spondylopathy, site unspecified; M50.322 Other cervical disc degeneration at C5-C6 level; Z79.82 Long term (current) use of aspirin; Z82.49 Family history of ischemic heart disease and other diseases of the circulatory system; Z86.73 Personal history of transient ischemic attack (TIA), and cerebral infarction without residual deficits; Z87.891 Personal history of nicotine dependence; M19.90 Unspecified osteoarthritis, unspecified site
CPT/HCPCS: 36415; 70551; 80061; 93306; 93880; J1650; J7030; 92610-GN; G0378